=== PATIENT | female | born 1980 | race Caucasian/White ===

== ENCOUNTER 2018-03-01 14:35 | Emergency (ER) | payer OTHER ==
[2018-03-01 15:29] LABS: URINE BLOOD (Dip) POC Negative (NEGATIVE); URINE KETONES (Dip) POC Negative (NEGATIVE); URINE LEUKOCYTE EST (Dip) POC Negative (NEGATIVE); URINE NITRITE (Dip) POC Negative (NEGATIVE); URINE TOTAL PROTEIN POC Negative (NEGATIVE)
[2018-03-01 15:29] LABS: URINE PH (Dip) POC 5.5 (5.0-8.5)
[2018-03-01] MEDS: DIAZEPAM 5 MG TAB PO (15:40)
[2018-03-01] MEDS: KETOROLAC 30 MG INJ IM (15:41)
== END 2018-03-01 15:55 | disposition home or self-care (01) ==
LOC: FTE 14:35
DX: M54.9 Dorsalgia, unspecified (principal); E11.9 Type 2 diabetes mellitus without complications; Z79.4 Long term (current) use of insulin
CPT/HCPCS: 81003; 81025; 96372; 99284-25